=== PATIENT | female | born 1990 | race African-American/Black ===

== ENCOUNTER 2016-12-04 19:17 | Emergency (ER) | payer SELFPAY ==
[~2016-12-04] VITALS: Ht 149.9 cm; Wt 58.1 kg
[~2016-12-04 19:17] MED LIST: ATARAX,VISTARIL25 MG PO; CIPRO500 MG PO; ENDOCET 5-3251 EACH PO; FLUOXETINE HCL10 MG PO; FOLIC ACID0.4 MG PO; FOLIC ACID0.8 MG PO; HYDREA500 MG PO; IBUPROFEN600 MG PO; IBUPROFEN800 MG PO; KEFLEX500 MG PO; METOCLOPRAMIDE H5 MG PO; MOTRIN800 MG PO; OMEPRAZOLE20 MG PO; PERCOCET 5/31 TABLET PO; PHENERGAN25 MG PR; PREDNISONE20 MG PO; TRAMADOL HCL50 MG PO; ULTRAM50 MG PO; ZANTAC150 MG PO; ZOFRAN ODT4 MG PO; ZOFRAN ODT8 MG PO
[2016-12-04 19:52] LABS: MEAN PLAT.VOLUME 9.8 uM^3 (9.5-12.4); PLATELET COUNT 140 K/uL (156-360)
[2016-12-04 20:00] LABS: CHLORIDE 107 mEq/L (99-109); POTASSIUM 3.9 mEq/L (3.7-5.4); SODIUM 137 mEq/L (136-147)
[2016-12-04 20:01] LABS: GLUCOSE 105 mg/dL (70-99)
[2016-12-04 20:03] LABS: ANION GAP 8 MEQ/L (2-14)
[2016-12-04 20:05] LABS: GFR ESTIMATE (CALCULATED) > 59 mL/min/
[2016-12-04 20:06] LABS: UREA NITROGEN (BUN) 7 mg/dL (9-23)
[2016-12-04 20:10] LABS: TROP-I INTERPRETATION NEGATIVE; TROPONIN-I < 0.01 ng/mL (0.0-0.30)
[2016-12-04 20:18] LABS: HEMATOCRIT 27.4 % (36.0-46.0); MCH 26.2 PG (29.0-34.0); MCHC 37.2 G/DL (30.0-36.0); MCV 70.3 FL (83-99); RBC DIS.WIDTH-CV 17.6 % (11.8-14.6); RBC DIS.WIDTH-SD 44.1 % (39-53); WHITE BLOOD COUNT 6.3 K/uL (4.1-10.2)
[2016-12-04 21:26] LABS: QUANTITATIVE HCG < 4.0 MIU/ML
[2016-12-04] MEDS ORDERED: DILAUDID2 MG PO (21:38)
[2016-12-04 22:14] LABS: ABSOLUTE RETICULOCYTE CT. 0.11 M/uL (0.02-0.08); IMM.RETIC FRACTION 18.2 % (3-19); RETICULOCYTE COUNT 2.8 % (0.5-1.8)
[2016-12-04 22:43] LABS: BILIRUBIN NEGATIVE; BLOOD NEGATIVE; COLOR YELLOW ((YELLOW)); GLUCOSE (STRIP) NEGATIVE; KETONES NEGATIVE; LEUKOCYTES NEGATIVE; NITRITE NEGATIVE; PROTEIN (STRIP) NEGATIVE; SPECIFIC GRAVITY 1.019 (1.000-1.030)
[2016-12-04 22:46] LABS: ADD MIUA? NO; UCUL ADDED? NO
[2016-12-04 22:55] VITALS: BP 122/64
== END 2016-12-04 22:55 | disposition home or self-care (01) ==
LOC: EME 19:17
PROVIDERS: Physician Assistant
DX: D57.1 Sickle-cell disease without crisis (principal)
CPT/HCPCS: 71020; 80048; 81003; 84484; 84702; 85027; 85045; 93005; 99281; 99285; J1170; J7030

== ENCOUNTER 2017-01-05 19:45 | Emergency (ER) | payer OTHER ==
[~2017-01-05] VITALS: Ht 149.9 cm; Wt 58.2 kg
[~2017-01-05 19:45] MED LIST changes: +DILAUDID2 MG PO
[2017-01-05 22:14] LABS: ABSOLUTE RETICULOCYTE CT. 0.08 M/uL (0.02-0.08); CHLORIDE 104 mEq/L (99-109); HEMATOCRIT 27.8 % (36.0-46.0); IMM.RETIC FRACTION 19.2 % (3-19); MCH 25.9 PG (29.0-34.0); POTASSIUM 3.9 mEq/L (3.7-5.4); RBC DIS.WIDTH-CV 19.2 % (11.8-14.6); RBC DIS.WIDTH-SD 50.5 % (39-53); RED BLOOD COUNT 3.86 M/uL (3.80-5.20); SODIUM 138 mEq/L (136-147); WHITE BLOOD COUNT 9.2 K/uL (4.1-10.2)
[2017-01-05 22:16] LABS: GLUCOSE 101 mg/dL (70-99)
[2017-01-05 22:17] LABS: ANION GAP 9 MEQ/L (2-14)
[2017-01-05 22:18] LABS: TOTAL BILIRUBIN 1.3 mg/dL (0.0-1.0)
[2017-01-05 22:19] LABS: ALKALINE PHOSPHATASE 68 IU/L (3-129)
[2017-01-05 22:20] LABS: GFR ESTIMATE (CALCULATED) > 59 mL/min/
[2017-01-05 22:21] LABS: UREA NITROGEN (BUN) 6 mg/dL (9-23)
[2017-01-05 22:51] LABS: EOSINOPHIL (%) 1.1 % (0-5); EOSINOPHIL COUNT 0.1 K/uL (0-0.3); IMMATURE GRANULOCYTE (%) 0.1 % (0.0-0.7); LYMPHOCYTE COUNT 1.8 K/uL (1.0-2.8); MONOCYTE (%) 4.6 % (3-12); MONOCYTE COUNT 0.4 K/uL (0-0.8); NEUTROPHIL COUNT 6.9 K/uL (1.8-6.4); PLAT.SUFFICIENCY ADEQUATE; PLATELET COUNT 164 K/uL (156-360); USER ID VLB
[2017-01-05 22:58] VITALS: BP 118/84
[2017-01-06 00:31] LABS: ADD MIUA? NO; BILIRUBIN NEGATIVE; BLOOD NEGATIVE; COLOR YELLOW ((YELLOW)); GLUCOSE (STRIP) NEGATIVE; KETONES NEGATIVE; LEUKOCYTES NEGATIVE; NITRITE NEGATIVE; PROTEIN (STRIP) NEGATIVE; SPECIFIC GRAVITY 1.013 (1.000-1.030)
== END 2017-01-06 01:40 | disposition home or self-care (01) ==
LOC: EME 19:45
PROVIDERS: Physician Assistant
DX: D57.00 Hb-SS disease with crisis, unspecified (principal); Z88.1 Allergy status to other antibiotic agents
CPT/HCPCS: 71010; 80053; 81003; 85025; 85045; 87040; 93005; 99281; 99285; J1170; J2405; J7030

== ENCOUNTER 2017-06-17 14:28 | Emergency (ER) | payer OTHER ==
[~2017-06-17] VITALS: Ht 149.9 cm; Wt 64.0 kg
[2017-06-17 15:42] LABS: CHLORIDE 105 mEq/L (99-109); POTASSIUM 3.8 mEq/L (3.7-5.4); SODIUM 135 mEq/L (136-147)
[2017-06-17 15:43] LABS: GLUCOSE 89 mg/dL (70-99)
[2017-06-17 15:45] LABS: ANION GAP 9 MEQ/L (2-14)
[2017-06-17 15:47] LABS: GFR ESTIMATE (CALCULATED) > 59 mL/min/
[2017-06-17 15:48] LABS: UREA NITROGEN (BUN) 9 mg/dL (9-23)
[2017-06-17 15:56] LABS: QUANTITATIVE HCG < 4.0 MIU/ML
[2017-06-17 16:24] LABS: HEMATOCRIT 26.9 % (36.0-46.0); MCH 25.4 PG (29.0-34.0); MCHC 36.1 G/DL (30.0-36.0); MCV 70.4 FL (83-99); PLATELET COUNT 144 K/uL (156-360); RBC DIS.WIDTH-CV 19.6 % (11.8-14.6); RBC DIS.WIDTH-SD 50.1 % (39-53); RED BLOOD COUNT 3.82 M/uL (3.80-5.20); WHITE BLOOD COUNT 9.8 K/uL (4.1-10.2)
[2017-06-17] MEDS ORDERED: PERCOCET 5/31 TABLET PO (18:21)
[2017-06-17 18:53] VITALS: BP 121/70
== END 2017-06-17 18:54 | disposition home or self-care (01) ==
LOC: EME 14:28
PROVIDERS: Physician Assistant
DX: D57.00 Hb-SS disease with crisis, unspecified (principal); R07.9 Chest pain, unspecified; F17.200 Nicotine dependence, unspecified, uncomplicated
CPT/HCPCS: 71020; 80048; 81003; 84702; 85027; 99281; 99285; J2270; J7030

== ENCOUNTER 2017-06-18 21:57 | Emergency (ER) | payer OTHER ==
[~2017-06-18] VITALS: Ht 149.9 cm; Wt 64.2 kg
[2017-06-18 23:02] LABS: ADD MIUA? NO; BILIRUBIN NEGATIVE; BLOOD NEGATIVE; COLOR YELLOW ((YELLOW)); GLUCOSE (STRIP) NEGATIVE; KETONES NEGATIVE; LEUKOCYTES NEGATIVE; NITRITE NEGATIVE; PROTEIN (STRIP) NEGATIVE; SPECIFIC GRAVITY 1.011 (1.000-1.030)
[2017-06-18 23:13] LABS: IMM.RETIC FRACTION 28.3 % (3-19); RETIC HGB EQUIVALENT 27.3 (28-36)
[2017-06-18 23:28] LABS: CHLORIDE 105 mEq/L (99-109); POTASSIUM 3.4 mEq/L (3.7-5.4); SODIUM 135 mEq/L (136-147)
[2017-06-18 23:28] LABS: EOSINOPHIL (%) 2.4 % (0-5); EOSINOPHIL COUNT 0.1 K/uL (0-0.3); HEMATOCRIT 25.3 % (36.0-46.0); IMMATURE GRANULOCYTE (%) 0.2 % (0.0-0.7); INSTRUMENT ABS NEUTROPHIL CT 2.5 K/uL; LYMPHOCYTE COUNT 1.7 K/uL (1.0-2.8); MCH 25.5 PG (29.0-34.0); MCV 70.9 FL (83-99); MEAN PLAT.VOLUME 10.8 uM^3 (9.5-12.4); MONOCYTE (%) 7.5 % (3-12); MONOCYTE COUNT 0.4 K/uL (0-0.8); NEUTROPHIL (%) 53.4 % (45-76); NEUTROPHIL COUNT 2.5 K/uL (1.8-6.4); PLATELET COUNT 142 K/uL (156-360); RBC DIS.WIDTH-CV 19.3 % (11.8-14.6); RBC DIS.WIDTH-SD 49.1 % (39-53); RED BLOOD COUNT 3.57 M/uL (3.80-5.20); WHITE BLOOD COUNT 4.7 K/uL (4.1-10.2)
[2017-06-18 23:30] LABS: GLUCOSE 89 mg/dL (70-99)
[2017-06-18 23:31] LABS: ANION GAP 9 MEQ/L (2-14)
[2017-06-18 23:33] LABS: ALKALINE PHOSPHATASE 53 IU/L (3-129)
[2017-06-18 23:34] LABS: GFR ESTIMATE (CALCULATED) > 59 mL/min/
[2017-06-18 23:35] LABS: UREA NITROGEN (BUN) 5 mg/dL (9-23)
[2017-06-19 01:53] LABS: APPEARANCE CLEAR/COLORLESS; RED CELL AREA COUNTED 18; RED CELL COUNT 0 /MM^3 (0-1); RED CELL DILUTION 1; WBC AREA COUNTED 18; WBC DILUTION 1; WHITE CELL COUNT 1 /MM^3 (0-5); WHITE CELL RAW COUNT 1
[2017-06-19 02:04] LABS: CSF EOSINOPHILS 0 % (0-25); MONO RAW COUNT 28; MONONUCLEAR WBC'S 100 % (50-90); POLYNUCLEAR WBC'S 0 % (0-3)
[2017-06-19] MEDS ORDERED: FIORICET 50-301 EACH PO (02:47)
[2017-06-19] MEDS ORDERED: LEVAQUIN500 MG PO (02:47)
[2017-06-19] MEDS ORDERED: MOTRIN800 MG PO (02:47)
[2017-06-19 03:03] VITALS: BP 112/74
[2017-06-19 14:14] LABS: LYME DISEASE SEROLOGY SCREEN NEGATIVE (NEGATIVE)
== END 2017-06-19 03:09 | disposition home or self-care (01) ==
LOC: EME 21:57
PROVIDERS: Physician Assistant
PROC: 009U3ZX Drainage of Spinal Canal, Percutaneous Approach, Diagnostic (ICD-10-PCS; principal; 2017-06-19)
DX: R51 Headache (principal); R50.9 Fever, unspecified; G62.9 Polyneuropathy, unspecified; F32.9 Major depressive disorder, single episode, unspecified; F17.200 Nicotine dependence, unspecified, uncomplicated; D57.1 Sickle-cell disease without crisis
CPT/HCPCS: 70450; 71020; 80053; 81003; 82945; 84157; 85025; 85045; 86617 90; 86618; 86618 90; 87040; 87070; 87205; 89051; 99281; 99285; J1885; J7030

== ENCOUNTER 2017-12-30 19:37 | Emergency (ER) | payer OTHER ==
[~2017-12-30] VITALS: Ht 121.9 cm; Wt 65.5 kg
[~2017-12-30 19:37] MED LIST changes: +FIORICET 50-301 EACH PO; +LEVAQUIN500 MG PO
[2017-12-30] MEDS ORDERED: TERBINAFINE HC250 MG PO (23:11)
[2017-12-30] MEDS ORDERED: SULINDAC200 MG PO (23:12)
[2017-12-30] MEDS ORDERED: GABAPENTIN300 MG PO (23:17)
[2017-12-30] MEDS ORDERED: TRAZODONE HCL50 MG PO (23:17)
[2017-12-30] MEDS ORDERED: ABILIFY5 MG PO (23:18)
[2017-12-30 23:30] LABS: BASOPHIL (%) 0.2 % (0-1); EOSINOPHIL (%) 0 % (0-5); HEMATOCRIT 24.3 % (36.0-46.0); HEMOGLOBIN 8.9 G/DL (11.9-15.5); IMMATURE GRANULOCYTE (%) 0.2 % (0.0-0.7); LYMPHOCYTE COUNT 1.9 K/uL (1.0-2.8); MCH 26.6 PG (29.0-34.0); MCHC 36.6 G/DL (30.0-36.0); MCV 72.5 FL (83-99); MONOCYTE (%) 5.6 % (3-12); MONOCYTE COUNT 0.3 K/uL (0-0.8); NEUTROPHIL COUNT 3.1 K/uL (1.8-6.4); PLATELET COUNT 147 K/uL (156-360); RBC DIS.WIDTH-CV 20.8 % (11.8-14.6); RBC DIS.WIDTH-SD 54.6 % (39-53); RED BLOOD COUNT 3.35 M/uL (3.80-5.20); WHITE BLOOD COUNT 5.3 K/uL (4.1-10.2)
[2017-12-30 23:39] LABS: CHLORIDE 106 mEq/L (99-109)
[2017-12-30 23:40] LABS: POTASSIUM 3.7 mEq/L (3.7-5.4); SODIUM 138 mEq/L (136-147)
[2017-12-30 23:41] LABS: GLUCOSE 107 mg/dL (70-99)
[2017-12-30 23:45] LABS: CREATININE 0.8 mg/dL (0.6-1.3); GFR ESTIMATE (CALCULATED) > 59 mL/min/
[2017-12-30 23:46] LABS: UREA NITROGEN (BUN) 8 mg/dL (9-23)
[2017-12-31 00:59] VITALS: BP 116/73
== END 2017-12-31 01:00 | disposition home or self-care (01) ==
LOC: EME 19:37
PROVIDERS: Physician Assistant
DX: M79.604 Pain in right leg (principal); M79.605 Pain in left leg; D57.1 Sickle-cell disease without crisis; Z88.1 Allergy status to other antibiotic agents
CPT/HCPCS: 80048; 85025; 99281; 99284; J2270

== ENCOUNTER 2018-02-09 13:21 | Emergency (ER) | payer OTHER ==
[~2018-02-09] VITALS: Ht 149.9 cm; Wt 61.6 kg
[~2018-02-09 13:21] MED LIST changes: +ABILIFY5 MG PO; +GABAPENTIN300 MG PO; +SULINDAC200 MG PO; +TERBINAFINE HC250 MG PO; +TRAZODONE HCL50 MG PO
[2018-02-09 15:18] LABS: CHLORIDE 105 mEq/L (99-109); HEMATOCRIT 27.1 % (36.0-46.0); HEMOGLOBIN 9.9 G/DL (11.9-15.5); IMM.RETIC FRACTION 27.7 % (3-19); MCH 25.6 PG (29.0-34.0); MCHC 36.5 G/DL (30.0-36.0); PLATELET COUNT 197 K/uL (156-360); RBC DIS.WIDTH-CV 18.6 % (11.8-14.6); RBC DIS.WIDTH-SD 47.4 % (39-53); RED BLOOD COUNT 3.87 M/uL (3.80-5.20); RETIC HGB EQUIVALENT 30.3 (28-36); SODIUM 137 mEq/L (136-147); WHITE BLOOD COUNT 8.1 K/uL (4.1-10.2)
[2018-02-09 15:19] LABS: RETICULOCYTE COUNT 2.8 % (0.5-1.8)
[2018-02-09 15:20] LABS: GLUCOSE 99 mg/dL (70-99)
[2018-02-09 15:24] LABS: CREATININE 0.8 mg/dL (0.6-1.3); GFR ESTIMATE (CALCULATED) > 59 mL/min/; TROP-I INTERPRETATION NEGATIVE; TROPONIN-I < 0.01 ng/mL (0.0-0.30)
[2018-02-09 15:25] LABS: UREA NITROGEN (BUN) 9 mg/dL (9-23)
[2018-02-09 15:53] LABS: QUANTITATIVE HCG < 4.0 MIU/ML
[2018-02-09] MEDS ORDERED: DILAUDID2 MG PO (16:34)
[2018-02-09 17:41] VITALS: BP 117/74
== END 2018-02-09 17:48 | disposition home or self-care (01) ==
LOC: EME 13:21
DX: D57.1 Sickle-cell disease without crisis (principal); G89.29 Other chronic pain; F32.9 Major depressive disorder, single episode, unspecified
CPT/HCPCS: 71046; 80048; 84484; 84702; 85027; 85046; 93005; 99281; 99284; J2270; J2405; J7030

== ENCOUNTER 2018-02-28 10:54 | Emergency (ER) | payer OTHER ==
[~2018-02-28] VITALS: Ht 149.9 cm; Wt 62.1 kg
[2018-02-28 11:31] LABS: IMM.RETIC FRACTION 24.3 % (3-19); RETIC HGB EQUIVALENT 29.8 (28-36)
[2018-02-28 11:35] LABS: BASOPHIL (%) 0.3 % (0-1); EOSINOPHIL (%) 0 % (0-5); HEMATOCRIT 28.7 % (36.0-46.0); HEMOGLOBIN 10.4 G/DL (11.9-15.5); IMMATURE GRANULOCYTE (%) 0.3 % (0.0-0.7); LYMPHOCYTE (%) 18.9 % (15-42); LYMPHOCYTE COUNT 1.4 K/uL (1.0-2.8); MCH 25.3 PG (29.0-34.0); MCHC 36.2 G/DL (30.0-36.0); MCV 69.8 FL (83-99); MONOCYTE (%) 5.8 % (3-12); MONOCYTE COUNT 0.4 K/uL (0-0.8); NEUTROPHIL (%) 74.7 % (45-76); NEUTROPHIL COUNT 5.6 K/uL (1.8-6.4); PLATELET COUNT 188 K/uL (156-360); RBC DIS.WIDTH-CV 19.7 % (11.8-14.6); RBC DIS.WIDTH-SD 49.5 % (39-53); RED BLOOD COUNT 4.11 M/uL (3.80-5.20); WHITE BLOOD COUNT 7.5 K/uL (4.1-10.2)
[2018-02-28 11:39] LABS: CHLORIDE 107 mEq/L (99-109); POTASSIUM 4.1 mEq/L (3.7-5.4); SODIUM 138 mEq/L (136-147)
[2018-02-28 11:41] LABS: GLUCOSE 107 mg/dL (70-99)
[2018-02-28 11:42] LABS: RETICULOCYTE COUNT 3.2 % (0.5-1.8)
[2018-02-28 11:44] LABS: CREATININE 0.8 mg/dL (0.6-1.3); GFR ESTIMATE (CALCULATED) > 59 mL/min/
[2018-02-28 11:45] LABS: UREA NITROGEN (BUN) 6 mg/dL (9-23)
[2018-02-28 12:31] LABS: APPEARANCE SL.HAZY ((CLEAR)); BILIRUBIN NEGATIVE; BLOOD NEGATIVE; COLOR YELLOW ((YELLOW)); GLUCOSE (STRIP) NEGATIVE; KETONES NEGATIVE; LEUKOCYTES NEGATIVE; NITRITE NEGATIVE; PROTEIN (STRIP) NEGATIVE; SPECIFIC GRAVITY 1.013 (1.000-1.030); UROBILINOGEN 0.2 MG/DL (0.2-1.0)
[2018-02-28 12:47] LABS: BACTERIA RARE /HPF; EPITHELIAL CELLS 1+ /HPF; HYALINE CASTS 0-5 /LPF; MUCUS TRACE /LPF; RED BLOOD CELLS 0-5 /HPF (0-5); UCUL ADDED? NO; WHITE BLOOD CELLS 0-5 /HPF (0-5)
[2018-02-28 14:15] VITALS: BP 126/79
== END 2018-02-28 14:26 | disposition home or self-care (01) ==
LOC: EME 10:54
PROVIDERS: Emergency Medicine
DX: D57.00 Hb-SS disease with crisis, unspecified (principal); F32.9 Major depressive disorder, single episode, unspecified; Z88.1 Allergy status to other antibiotic agents
CPT/HCPCS: 71045; 80048; 81003; 85025; 85046; 99281; 99285; J1885; J7030

== ENCOUNTER 2018-06-03 10:21 | Emergency (ER) | payer OTHER ==
[~2018-06-03] VITALS: Ht 149.9 cm; Wt 65.8 kg
[2018-06-03 11:10] LABS: PLAT.SUFFICIENCY ADEQUATE
[2018-06-03 11:16] LABS: HEMATOCRIT 28.2 % (36.0-46.0); HEMOGLOBIN 10.1 G/DL (11.9-15.5); MCH 24.6 PG (29.0-34.0); MCHC 35.8 G/DL (30.0-36.0); MCV 68.6 FL (83-99); RBC DIS.WIDTH-CV 18.5 % (11.8-14.6); RBC DIS.WIDTH-SD 45.6 % (39-53); RED BLOOD COUNT 4.11 M/uL (3.80-5.20); WHITE BLOOD COUNT 8.2 K/uL (4.1-10.2)
[2018-06-03 11:19] LABS: PLATELET COUNT 191 K/uL (156-360)
[2018-06-03 11:21] LABS: ALBUMIN 4.5 g/dL (3.2-4.8)
[2018-06-03 11:22] LABS: CHLORIDE 106 mEq/L (99-109); SODIUM 139 mEq/L (136-147)
[2018-06-03 11:24] LABS: GLUCOSE 96 mg/dL (70-99); TOTAL PROTEIN 7.6 g/dL (6.4-8.3)
[2018-06-03 11:26] LABS: TOTAL BILIRUBIN 0.6 mg/dL (0.0-1.0)
[2018-06-03 11:27] LABS: ALKALINE PHOSPHATASE 66 IU/L (3-129)
[2018-06-03 11:28] LABS: CREATININE 0.9 mg/dL (0.6-1.3); GFR ESTIMATE (CALCULATED) > 59 mL/min/
[2018-06-03 11:29] LABS: AST (GOT) 15 IU/L (2-34); UREA NITROGEN (BUN) 6 mg/dL (9-23)
[2018-06-03 11:31] LABS: ALT (GPT) 12 IU/L (3-49)
[2018-06-03 11:38] LABS: QUANTITATIVE HCG < 4.0 MIU/ML
[2018-06-03 14:05] LABS: APPEARANCE CLEAR ((CLEAR)); BILIRUBIN NEGATIVE; BLOOD NEGATIVE; COLOR YELLOW ((YELLOW)); GLUCOSE (STRIP) NEGATIVE; KETONES 5; LEUKOCYTES NEGATIVE; NITRITE NEGATIVE; PROTEIN (STRIP) NEGATIVE; SPECIFIC GRAVITY 1.011 (1.000-1.030); UCUL ADDED? NO
[2018-06-03 14:27] VITALS: BP 126/93
== END 2018-06-03 14:28 | disposition home or self-care (01) ==
LOC: EME 10:21
DX: R07.89 Other chest pain (principal); G62.9 Polyneuropathy, unspecified; F32.9 Major depressive disorder, single episode, unspecified; Z86.2 Personal history of diseases of the blood and blood-forming organs and certain disorders involving the immune mechanism; Z88.1 Allergy status to other antibiotic agents
CPT/HCPCS: 71046; 80053; 81003; 84702; 85027; 93005; 99281; 99284